=== PATIENT | female | born 1950 | race Caucasian/White ===

== ENCOUNTER → 2021-11-16 09:54 | Outpatient (CLI) | payer MEDICARE, SELFPAY ==
--- NOTE | ~2021-11-16 | MM_ITS ---
EXAMINATION: MM screening kisha BI w esperanza HISTORY: Screening mammogram TECHNIQUE: Craniocaudal and mediolateral oblique 3-D tomosynthesis images were obtained and synthetic 2-D images were generated. CAD analysis was submitted and interpreted. COMPARISON: 11/16/2018, 11/14/2017, 11/08/2016 bilateral screening mammogram examinations BREAST PARENCHYMAL COMPOSITION: There are scattered areas of fibroglandular density. FINDINGS: Biopsy marker on the right; history of prior benign right breast biopsy. Questionable new 5 mm mass at central left breast 6.4 cm deep to the nipple on MLO view. Diagnostic l eft mammogram is recommended, with ultrasound if required. There is otherwise no evidence of suspicious mass, calcification, or architectural distortion to sugg est malignancy in either breast. There has been no other suspicious interval change. IMPRESSION: 1. Questionable new 5 mm mass in central left breast on MLO view 2. Diagnostic left mammogram is recommended, with ultrasound if required BI-RADS Category 0: Incomplete: Needs additional imaging evaluation. Reviewed, dictated and finalized at location A.
--- NOTE | ~2021-11-16 | DEXA_ITS ---
Bone Density Report Name: IZZY MOREIRA Age: 71 Sex: Female Ethnicity: White Date of : 1950 Indication: postmenopausal; screening for osteoporosis; Referring Provider: RACHEL, LOUISA Study: Bone densitometry was performed. Exam Date: November 16, 2021 Accession number: [id number] Bone Density: Region BMD T-score Z-score Classification AP Spine (L1-L4) 1.043 0.0 2.0 Normal Femoral Neck (Left) 0.698 -1.4 0.4 Osteopenia Total Hip (Left) 0.896 -0.4 1.1 Normal Femoral Neck (Right) 0.663 -1.7 0.1 Osteopenia Total Hip (Right) 0.904 -0.3 1.1 Normal Total Hip Mean 0.900 -0.4 1.1 Normal World Health Organization criteria for BMD impression classify patients as: Normal (T-score at or above -1.0), Osteopenia (T-score between -1.0 and -2.5), or Osteoporosis (T-score at or below -2.5). 10-year Fracture Risk(1): Major Osteoporotic Fracture 9.3% Hip Fracture 1.3% Reported Risk Factors: [place] (), Neck BMD=0.663, BMI=35.7 (1) FRAX(R) Version 3.08. Fracture probability calculated for an untreated patient. Fracture probability may be lower if the patient has received treatment. Previous Exams: Region Exam Age BMD T-score BMD Change BMD Change Date g/cm2 vs Baseline vs Previous AP Spine(L1-L4) 11/16/2021 71 1.043 0.0 -0.081 -0.070* 11/16/2018 68 1.114 0.6 -0.010 -0.062 11/03/2015 65 1.176 1.2 0.052* 0.073* 05/28/2013 62 1.103 0.5 -0.021 -0.021 04/27/2007 56 1.124 0.7 Total Hip(Left) 11/16/2021 71 0.896 -0.4 -0.023 -0.036* 11/16/2018 68 0.932 -0.1 0.013 -0.019 11/03/2015 65 0.951 0.1 0.032* 0.026 05/28/2013 62 0.924 -0.1 0.005 0.005 04/27/2007 56 0.919 -0.2 Total Hip(Right) 11/16/2021 71 0.904 -0.3 0.005 -0.006 11/16/2018 68 0.910 -0.3 0.011 -0.049 11/03/2015 65 0.958 0.1 0.060* 0.021 05/28/2013 62 0.937 0.0 0.039* 0.039* 04/27/2007 56 0.898 -0.4 *Denotes significance at 95% confidence level, LSC for AP Spine = 0.022 g/cm2, LSC for Total Hip = 0.027 g/cm2 Clinical Information Provided by Patient: Has used the following medications: Vitamin D Patient maximum height was 66 Menopause Age: 54 No regular weight bearing exercise Does not regularly consume dairy products Drinks caffeinated ender
== END ==
PROVIDERS: Visit Provider Nurse Practitioner
DX: Z12.31 Encounter for screening mammogram for malignant neoplasm of breast (principal); Z78.0 Asymptomatic menopausal state; R92.8 Other abnormal and inconclusive findings on diagnostic imaging of breast; M85.852 Other specified disorders of bone density and structure, left thigh; M85.851 Other specified disorders of bone density and structure, right thigh
CPT/HCPCS: 77063; 77067; 77080

== ENCOUNTER → 2021-11-29 08:46 | Outpatient (CLI) | payer MEDICARE, SELFPAY ==
--- NOTE | ~2021-11-29 | MMUS_ITS ---
EXAMINATION: MM diagnostic kisha LT w esperanza, US breast LT complete HISTORY: Follow-up left breast asymmetry TECHNIQUE: Additional 3-D tomosynthesis images of the left breast were performed and synthetic 2-D im ages were generated. CAD analysis was submitted and interpreted. High resolution complete left breast ultrasound was performed. COMPARISON: Comparison to multiple prior studies sequentially, with oldest reviewed study dated 11/02. BREAST PARENCHYMAL COMPOSITION: Breast composed of scattered areas of fibroglandular density FINDINGS: MAMMOGRAPHIC FINDINGS: There are no suspicious masses, calcifications or architectural distortion in the left breast to sugg est malignancy. ULTRASOUND: Complete left breast ultrasound including all 4 quadrants in the subareolar location: At 2:00, 9 cm f rom the nipple there is a 1.1 cm lymph node. No suspicious masses to suggest malignancy. IMPRESSION: 1. No evidence for malignancy in the left breast. 2. Routine yearly screening mammogram and regular clinical breast examination are recommended. BI-RADS Category 2: Benign finding(s). Reviewed, dictated and finalized at location A. IMPRESSION: 1. No evidence for malignancy in the left breast. 2. Routine yearly screening mammogram and regular clinical breast examination a re recommended. BI-RADS Category 2: Benign finding(s).
== END ==
PROVIDERS: PCP Obstetrics & Gynecology Gynecology; Visit Provider Obstetrics & Gynecology Gynecology
DX: R92.8 Other abnormal and inconclusive findings on diagnostic imaging of breast (principal)
CPT/HCPCS: 76641; 77061; 77065; G0279

== ENCOUNTER → 2022-11-18 07:24 | Outpatient (CLI) | payer MEDICARE, SELFPAY ==
--- NOTE | ~2022-11-18 | MM_ITS ---
EXAMINATION: MM screening kisha BI w esperanza HISTORY: Screening mammogram TECHNIQUE: Craniocaudal and mediolateral oblique 3-D tomosynthesis images were obtained and synthetic 2-D images were generated. CAD analysis was submitted and interpreted. COMPARISON: November 29, 2021 diagnostic left mammogram and complete left breast ultrasound examination November 16, 2021, November 16, 2018 bilateral screening mammogram examinations BREAST PARENCHYMAL COMPOSITION: There are scattered areas of fibroglandular density. FINDINGS: Scattered occasional benign calcifications. There is no evidence of suspicious mass, calcif ication, or architectural distortion to suggest malignancy in either breast. There has been no suspic ious interval change. IMPRESSION: 1. No mammographic evidence of malignancy. 2. Recommend routine screening mammography in one year. BI-RADS Category 2: Benign finding(s). Reviewed, dictated and finalized at location A.
== END ==
PROVIDERS: Visit Provider Nurse Practitioner
DX: Z12.31 Encounter for screening mammogram for malignant neoplasm of breast (principal)
CPT/HCPCS: 77063; 77067

== ENCOUNTER 2023-11-24 07:24 | Outpatient (CLI) | payer MEDICARE, SELFPAY ==
--- NOTE | ~2023-11-24 | MM_ITS ---
EXAMINATION: MM screening kisha BI w esperanza HISTORY: Screening TECHNIQUE: Craniocaudal and mediolateral oblique 3-D tomosynthesis images were obtained and synthetic 2-D images were generated. CAD analysis was submitted and interpreted. COMPARISON: Comparison to multiple prior studies sequentially, with oldest reviewed study dated 11/16. BREAST PARENCHYMAL COMPOSITION: Not dense: There are scattered areas of fibroglandular density. FINDINGS: The right breast is stable without evidence for malignancy. There are developing nodular as ymmetries in the upper outer quadrant of the left breast. IMPRESSION: 1. Developing nodular asymmetries upper-outer quadrant of the left breast. 2. Additional mammographic views and possible breast ultrasound are recommended. BI-RADS Category 0: Incomplete: Needs additional imaging evaluation. Reviewed, dictated and finalized at location B. IMPRESSION: 1. Developing nodular asymmetries upper-outer quadrant of the left breast. 2. Additional mammographic views and possible breast ultrasound are recommended . BI-RADS Category 0: Incomplete: Needs additional imaging evaluation.
== END 2023-11-24 07:25 ==
LOC: MICIMG 07:25
PROVIDERS: PCP Nurse Practitioner; Visit Provider Nurse Practitioner
DX: Z12.31 Encounter for screening mammogram for malignant neoplasm of breast (principal); R92.8 Other abnormal and inconclusive findings on diagnostic imaging of breast
CPT/HCPCS: 77063; 77067

== ENCOUNTER 2023-12-25 07:53 | Outpatient (CLI) | payer MEDICARE, SELFPAY ==
--- NOTE | ~2023-12-25 | MMUS_ITS ---
EXAMINATION: MM diagnostic kisha LT w esperanza, US breast LT limited HISTORY: Follow-up left breast asymmetries. TECHNIQUE: Additional 3-D tomosynthesis images of the left breast were performed and synthetic 2-D im ages were generated. CAD analysis was submitted and interpreted. High resolution Limited left breast ultrasound was performed. COMPARISON: Comparison to multiple prior studies sequentially, with oldest reviewed study dated 11/14. BREAST PARENCHYMAL COMPOSITION: Not dense: There are scattered areas of fibroglandular density. FINDINGS: MAMMOGRAPHIC FINDINGS: There are persistent nodular asymmetries in the upper outer quadrant of the left breast. No suspiciou s calcifications are identified. ULTRASOUND: Limited left breast ultrasound: At 1:00, 5 cm from the nipple there is an irregular shaped hypoechoic 6 mm mass without internal vascularity. There is mixed posterior attenuation. Margins are somewhat i rregular. Parallel orientation. At 3:00, 5 cm from the nipple there is a 6 mm oval hypoechoic mass wi th what appears to be an echogenic hilum, most likely benign intramammary lymph node. IMPRESSION: 1. Suspicious irregular shaped mass at 1:00, 5 cm from the left nipple measuring 6 mm. 2. Ultrasound-guided left breast biopsy recommended. BI-RADS category 4, suspicious findings. Reviewed, dictated and finalized at location A. IMPRESSION: 1. Suspicious irregular shaped mass at 1:00, 5 cm from the left nipple measurin g 6 mm. 2. Ultrasound-guided left breast biopsy recommended. BI-RADS category 4, suspicious findings.
== END 2023-12-25 07:54 ==
PROVIDERS: Visit Provider Nurse Practitioner
DX: R92.8 Other abnormal and inconclusive findings on diagnostic imaging of breast (principal); N63.21 Unspecified lump in the left breast, upper outer quadrant
CPT/HCPCS: 76642; 77061; 77065; G0279

== ENCOUNTER 2024-11-26 10:10 | Outpatient (CLI) | payer MEDICARE, SELFPAY ==
--- NOTE | ~2024-11-26 | DEXA_ITS ---
Bone Density Report Name: IZZY MOREIRA Age: 74 Sex: Female Ethnicity: White Date of : 1950 Indication: postmenopausal; screening for osteoporosis; height loss; Referring Provider: JORGE HERNANDEZ Study: Bone densitometry was performed. Exam Date: November 26, 2024 Accession number: [id number] Bone Density: Region BMD T-score Z-score Classification AP Spine(L1-L4) 1.080 0.3 2.5 Normal Femoral Neck (Left) 0.694 -1.4 0.5 Osteopenia Total Hip (Left) 0.795 -1.2 0.4 Osteopenia Femoral Neck (Right) 0.665 -1.7 0.3 Osteopenia Total Hip (Right) 0.898 -0.4 1.3 Normal Total Hip Mean 0.846 -0.8 0.9 Normal World Health Organization criteria for BMD impression classify patients as: Normal (T-score at or above -1.0), Osteopenia (T-score between -1.0 and -2.5), or Osteoporosis (T-score at or below -2.5). 10-year Fracture Risk(1): Major Osteoporotic Fracture 10% Hip Fracture 1.7% Reported Risk Factors: [place] (), Neck BMD=0.665, BMI=34.6 (1) FRAX(R) Version 3.08. Fracture probability calculated for an untreated patient. Fracture probability may be lower if the patient has received treatment. Clinical Information Provided by Patient: Has used the following medications: Vitamin D, Calcium Patient maximum height was 66 Menopause Age: 52 No regular weight bearing exercise Drinks caffeinated beverages Onset of menses at age 15 Number of children 1 Impression: The patient has low bone mass, based on the Right Femoral Neck T-score. The patient has an estimated ten-year risk of hip fracture of 1.7% and an estimated ten-year risk of major fracture of 10%, based on the WHO FRAX algorithm. Discussion: BONE DENSITY IS LOW AT ONE OR MORE SKELETAL SITES. This patient's lowest T-score is low at one or more skeletal sites. It meets the World Health Organization's (WHO) criteria for ?low bone mass? (T-score between -1.0 and -2.5). The patient's 10-year risk of fracture as calculated by FRAX is less than the threshold where pharmacological therapy is recommended by the National Osteoporosis Foundation (NOF). However, all treatment decisions require clinical judgment and consideration of individual patient factors, including patient preferences, comorbidities, previous drug use, risk factors not captured in the FRAX model (e.g., frailty, falls, vitamin D deficiency, increased bone turnover, interval significant decline in bone density) and possible under or overestimation of fracture risk by FRAX. The patient should follow a healthful lifestyle (good nutrition with adequate calcium and vitamin D, and appropriate weight-bearing exercise). Follow-Up: Consider repeating this study in 2 to 3 years to reassess this patient's status, or sooner if there is some new clinical indication. Reported by: ELKE on 11/26/2024 11:10:00 AM. Reviewed, dictated and finalized at location [facility]et
--- OUTSIDE RECORDS SUMMARY | 2024-11-26 11:32 | XMS_ITS | Clinical Summary ---
Author Organization [facility] Address [address] [place] [address] Care Team Providers Care Roofer Gypsum Name Role Phone Manda Sargent [facility] Primary Care Provider + Allergies No known active allergies Medications vitamin D2, ergocalciferol, [address] UNITS capsuleIndications :3 times per month Take 1 capsule (1.25 mg total) by mouth. Indications: 3 times per month 5 Active clotrimazole-betam ethasone cream 9 Active aspirin EC (ASPIRIN LOW DOSE) 81 MG tabletIndications: Hypertension, unspecified type Take 1 tablet (81 mg total) by mouth daily. 90 tablet 1 Active ONE TOUCH ULTRA 2 w/Device KitIndications:Typ e 2 diabetes mellitus without complication, without long-term current use of insulin ([facility]) USE TO TEST BLOOD GLUCOSE 1 kit 1 Active CALCIUM-VITAMIN D OR Active Doxylamine Succinate, Sleep, (SLEEP AID OR) Activ e levothyroxine (SYNTHROID) 25 MCG tabletIndications: Elevated TSH Take 1 tablet (25 mcg total) by mouth every morning. 90 tablet 3 4 Active lisinopril (PRINIVIL) 2.5 MG tabletIndications: Essential hypertension Take 1 tablet (2.5 mg total) by mouth daily. 90 tablet 3 4 Active metFORMIN (GLUCOPHAGE) 500 MG tabletIndications: Type 2 diabetes mellitus without complication, without long-term current use of insulin ([facility]) Take 1 tablet (500 mg total) by mouth 2 (two) times daily. 180 tablet 3 4 Active simvastatin (ZOCOR) 10 MG tabletIndications: Hyperlipidemia, unspecified hyperlipidemia type Take 1 tablet (10 mg total) by mouth nightly at bedtime. 90 tablet 3 4 Active Glucose Blood (ONETOUCH ULTRA) test stripIndications:U ncontrolled type 2 diabetes mellitus with hyperglycemia ([facility]/HCC HHS/HCC) 1 strip by Other route 2 (two) times a day. Use as instructed 200 strip 3 4 Active Lancets (ONETOUCH DELICA PLUS [id number]) MiscIndications:Un controlled type 2 diabetes mellitus with hyperglycemia (CMS/HCC HHS/HCC) 1 each by Other route 2 (two) times a day. 200 each 3 5 Active Lancet Devices (ONE TOUCH DELICA LANCING DEV) MiscIndications:Ty pe 2 diabetes mellitus with diabetic chronic kidney disease ([facility]/HCC HHS/HCC) Patient is needing a new lancing device 1 each 5 Active glimepiride (AMARYL) 4 MG tabletIndications: Type 2 diabetes mellitus with hyperglycemia, without long-term current use of insulin ([facility]/HCC HHS/HCC) Take 1 tablet (4 mg total) by mouth every morning before breakfast. Increase dose on 10/02/24. Was taking 2mg daily. 5 Active Active Problems Problem Noted Date Diagnosed Date Type 2 diabetes mellitus wit h diabetic chronic kidney disease 08/22/2023 BCC (basal cell carcinoma of skin) 05/09/2022 Type 2 or unspecified type d iabetes mellitus ([facility] HHS/HCC) 12/23/2014 Encounters Date Type Department Care Team Description 09/30/[address] [phone] Manda Sargent FNP-BC FYI 09/20/[address] [phone] Manda Sargent FNP-BC Results 09/18/2024 Scan HEALTH INFO SRVCS Scanned, [facility] (SCAN) from Last 3 Months Immunizations Immunization Administration Dates Next Due Fluzone 6 Months+ Quad (0.5 mL Prefilled Syringe) 05/04/2020(Deferred: Patient Refused) Fluzone High Dose (IIV, triv alent, 0.5mL) 06/19/2024 Fluzone High Dose - >Age 65 (Prefilled Syringe) 05/26/2022,06/25/2021 Influenza (Generic) 06/06/2023 PFIZER COVID-19 (NOVOA CAP), MRNA, LNP-S, PF, 30 MCG/0.3 ML MARKO-SUCROSE, IM 12/17/2021 PFIZER COVID-19 (ORIGINAL FORMULATION, PURPLE CAP) mRNA, LNP-S, PF, 30 MCG/0.3 ML DOSE 05/13/2021,10/21/2020,09/30/2020 PFIZER COVID-19 BIVALENT (12 +) mRNA, LNP-S, PF, 30 MCG/0.3 ML DOSE 05/26/2022 Pneumococcal (Pneumovax 23) 11/01/2022(D eferred: Patient/family declined) Shingrix 04/22/2024,,11/01/2022(Deferr ed: Patient/family declined) Family History Medical History Relation Comments Diabetes Brother 1 Heart Disease Brother 1 Diabetes Brother 2 Heart Disease Brother 2 Diabetes Brother 3 Cancer Father lung, brain Diabetes Mother Diabetes Sister 1 Heart Disease Sister 1 Diabetes Sister 2 Heart Disease Sister 2 Diabetes Sister 3 Relation Status Comments Brother 1 Brother 2 Brother 3 Alive Father Mother Sister 1 Sister 2 Sister 3 Alive Social History Tobacco Use Types Packs/Day Years Used Date Smoking Tobacco: Never Passive Smoke Exposure: Past Smokeless Tobacco: Never Tobacco Cessation:Counseling Given: No Alcohol Use Standard Drinks/Week Comments Yes 0 (1 standard drink = 0.6 oz pur e alcohol) PHQ-2 Answer Date Recorded Patient Health Questionnaire-2 Score 0 08/19/2024 Comments No Sex and Gender Information Value Date Recorded Sex Assigned at Not on file Legal Sex Female 7:36 PM CDT Gender Identity Not on file Sexual Orientation Not on file Last Filed Vital Signs Vital Sign Reading Time Taken Comments Blood Pressure 152/89 02/16/2024 9:15 AM CDT Pulse 93 02/16/2024 8:45 AM CDT Temperature 35.9 C (96.7 F) 02/16/2024 8:45 AM CDT Respiratory Rate 18 02/16/2024 8:45 AM CDT Oxygen Saturation 98% 02/16/2024 8:45 AM CDT Inhaled Oxygen Concentration - - Weight 95.3 kg (210 lb) 02/16/2024 8:45 AM CDT Height 167.6 cm (5' 6 ) 02/16/2024 8:45 AM CDT Body Mass Index 33.89 02/16/2024 8:45 AM CDT Plan of Treatment Health Maintenance Due Date Last Done Comments DTaP, Tdap and Td Vaccines (1 - Tdap) 1971 Pneumococcal Vaccine: 50+ Years (1 of 2 - PCV) 1971 RSV Immunization or 60+ Years (1 - Risk 60-74 years 1-dose series) 2012 Annual Medicare Wellness Visit 2017 COVID-19 Vaccine (8 - Pfizer risk season) 2024 06/19/2024, 06/06/2023, 05/26/2022, Additional history exists Kidney Health Evaluation 03/01/2025 03/01/2024 Lipid Panel 03/01/2025 03/01/2024, 02/04, 02/11/2022, Additional history exists Hemoglobin A1C 03/18/2025 09/18/2024, 02/05, 08/29/2023, Additional history exists Diabetes: Retinopathy Eye Exam 11/07/2025 11/08/2023, 05/05/2021 Colorectal Cancer Screening Colonoscopy (10 Years) 12/21/2025 12/22/2015 Mammogram Screening 01/14/2026 01/15/2024, 11/18/2022, 11/29/2021, Additional history exists Dexa Scan (General) Completed 11/16/2021 Hepatitis C Completed 03/01/2024 Zoster Vaccines Completed 04/22/2024, 02/16/2024 PHQ-2 (Physician Innis) Completed 08/19/2024 Meningococcal B Vaccine Aged Out No l onger eligible based on patient's age to complete this topic Meningococcal Vaccine Aged Out No gregorio margarita eligible based on patient's age to complete this topic RSV Immunizations Under 20 Months Aged Out No longer eligible based on patient's age to complete this topic Procedures Procedure Name Priority Date/Time Associated Diagnosis Comments OUTSIDE LAB (SCAN ORDER) Routine 09/18/2024 HEPATITIS C ANTIBODY W/RFX TO HCV RNA Routine 03/01/2024 7:05 AM CDT LIPID PANEL Routine 03/01/2024 7:05 AM CDT Hyperlipidemia, unspecified hyperlipidemia type DIABETIC RETINOPATHY EXAM (NEGATIVE)(SCAN ORDER) Routine 11/08/2023 12:00 AM CDT MAMMOGRAM GENERIC (SCAN ORDER) 11/18/2022 BONE DENSITY GENERIC (SCAN ORDER) 11/16/2021 COLONOSCOPY GENERIC (SCAN ORDER) Routine 12/22/2015 from Last 3 Months or Most Recently Relevant to Health Maintenance Results * OUTSIDE LAB (09/18/2024) HGB A1C 7.2 % [facility] 09/18/2024 us [facility] Scanned SCANNING Final Resu lt [facility] * HEPATITIS C ANTIBODY W/RFX TO HCV RNA (03/01/2024 7:05 AM CDT) HEPATITIS C AB NON-REACT QIANA NON-REACT QIANA Valutao [facility] Comment: HCV antibody was non-reactive. There is no laboratory evidence of HCV infection. In most cases, no further action is required. However, if recent HCV exposure is suspected, a test for HCV RNA (test code 69729) is suggested. For additional information please refer to http://education.[employer]/faq/MRM55h0 (This link is being provided for informational/ educational purposes only.) 03/01/2024 7:05 AM CDT 03/01/2024 7:07 AM CDT Narrative ABBY MORALES ORDERS - 03/02/2024 2:32 PM CDT FASTING:YES FASTING: YES Resulting Agency Comment Performing Organization Information: Site ID: [id number] Name: Abby Acevedo Address: [address] [address] Director: Paola Ramirez MD us Manda Sargent [facility] Final Re sult ABBY ALVARADO [facility] [address] [facility] [place] [address], * LIPID PANEL (03/01/2024 7:05 AM CDT) Pathologist [facility] CHOLESTEROL 171 <200 mg/dL [facility] HDL 72 > OR = 50 mg/dL [facility] TRIGLYCERIDES 122 <150 mg/dL [facility] LDL (CALCULATED) 79 mg/dL (calc) [facility] Comment: Reference range: <100 Desirable range <100 mg/dL for primary prevention; <70 mg/dL for patients with CHD or diabetic patients with > or = 2 CHD risk factors. LDL-C is now calculated using the Mauricio-Edgar calculation, which is a validated novel method providing better accuracy than the Friedewald equation in the estimation of LDL-C. Mauricio SS et al. PREMA. 2013;310(19): 7948-6810 (http://education.[employer].com/faq/NXR489) CHOL/HDL RATIO 2.4 <5.0 (calc) [facility] NON HDL CHOLESTEROL 99 <130 mg/dL (calc) [facility] Comment: For patients with diabetes plus 1 major ASCVD risk factor, treating to a non-HDL-C goal of <100 mg/dL (LDL-C of <70 mg/dL) is considered a therapeutic option. 03/01/2024 7:05 AM CDT 03/01/2024 7:07 AM CDT Narrative ABBY ALVARADO - 03/02/2024 2:32 PM CDT FASTING:YES FASTING: YES Resulting Agency Comment Performing Organization Information: Site ID: [id number] Name: Abby Acevedo Address: [address] [id number] Director: Paola Ramirez MD us Manda Sargent [employer]/DESIGNER- LABORATORY Final Re sult Performing Organization Address [facility] Co de Phone Number [facility] [address] [place] [address], [place] * DIABETIC RETINOPATHY EXAM (NEGATIVE) (11/08/2023 12:00 AM CDT) 11/08/2023 [facility] Scanned SCANNING Final Resu lt Performing Organization Address [facility] Co de Phone Number [facility] * MAMMOGRAM GENERIC (11/18/2022) Anatomical Region Laterality Modality Other 11/18/2022 [facility] Scanned SCANNING Final Resu lt * BONE DENSITY GENERIC (11/16/2021) Anatomical Region Laterality Modality Other 11/16/2021 Narrative 11/16/2021 Ordered by an unspecified provider. us Documents Scanned SCANNING Final Result * COLONOSCOPY (12/22/2015) us Documents Scanned SCANNING Final Result Performing Organization Address [facility] Co de Phone Number [facility]GEN from Last 3 Months or Most Recently Relevant to Health Maintenance Insurance MED [facility] MEDICARE Care Teams Roofer Gypsum Relationship Specialty Start Date End Date Manda Sargent, TOOL AND DIE MAKER/DESIGNER- [id number], [address] [place] [address] PCP - General NURSE PRACTITIONER 05/04/20
--- OUTSIDE RECORDS SUMMARY | 2024-11-26 11:32 | XMS_ITS | Encounter Summary ---
Author Organization [facility] Address [address] [place] [address] Care Team Providers Care Home Economist Name Role Phone Rama Fam MD Primary Care Provider + Reason for Visit * Diagnostic Imaging (Routine) - Pending Review Specialty Diagnoses / Procedures Referred By Contac t Referred To Contact Procedures Breast Imaging Screening Outside Reference Transcribed Order, Provider Referral ID Status Reason Start Date Expiration Date V isits Requested Visits Authorized [id number] Pending Review 01/04/2024 02/02/2025 1 1 Encounter Details Date Type Department Care Team (Late st Contact Info) Description 11/16/2018 Hospital Encounter [facility] [address] [place] [id number] Social History Tobacco Use Types Packs/Day Years Used Date Smoking Tobacco: Never Assessed Alcohol Use Standard Drinks/Week Comments Yes 0 (1 standard drink = 0.6 oz pur e alcohol) Comments Unknown Sex and Gender Information Value Date Recorded Sex Assigned at Not on file Legal Sex Female 7:01 PM COURIER Gender Identity Not on file Sexual Orientation Not on file documented as of this encounter Plan of Treatment Not on file documented as of this encounter Procedures Procedure Name Priority Date/Time Associated Diagnosis Comments BREAST IMAGING MG SCREENING OUTSIDE REFERENCE Routine 11/16/2018 12:00 AM CDT documented in this encounter Results * Breast Imaging Screening Outside Reference (11/16/2018 12:00 AM CDT) Impressions [facility] - 01/04/2024 8:39 AM CDT These images are for Reference purposes only and have not been reviewed by [facility] Radiology. There will be no report generated by a [facility] Radiologist. Narrative RAD_MAMMO_[facility] - 01/04/2024 8:39 AM CDT EXAMINATION: Images For Reference Purposes Only us Provider Transcribed Order IMG MAMMO PROCEDURES Final Result [facility] documented in this encounter Visit Diagnoses Not on filedocumented in this encounter Care Teams Home Economist Relationship Specialty Start Date End Date Rama Fam MD [address] [address] PCP - General 06/20/13 01/31/24 documented as of this encounter
--- OUTSIDE RECORDS SUMMARY | 2024-11-26 11:32 | XMS_ITS | Clinical Summary ---
Author Organization [facility] Address [address] [place] [phone] Care Team Providers Care Money Market Clerk Name Role Phone Manda Sargent NP Primary Care Provide r Rama Fam MD Unavailable [phone] Allergies No known active allergies Medications aspirin 81 mg enteric coated tablet Take 1 tablet (81 mg total) by mouth daily 1 Active ergocalciferol (VITAMIN D) 50,000 unit capsule Take 1.25 mg by mouth 5 Active glimepiride (AMARYL) 2 mg tablet TAKE 1 TABLET BY MOUTH EVERY MORNING BEFORE BREAKFAST (INCREASE IN DOSE) 3 Active lisinopriL (PRINIVIL,ZESTR IL) 2.5 mg tablet Take 1 tablet (2.5 mg total) by mouth daily 4 Active metFORMIN (GLUCOPHAGE) 500 mg tablet Take 1 tablet (500 mg total) by mouth 2 (two) times a day 3 Active levothyroxine (SYNTHROID) 25 mcg tablet Take 1 tablet (25 mcg total) by mouth daily Active simvastatin (ZOCOR) 10 mg tablet TAKE 1 TABLET BY MOUTH AT NIGHT AT BEDTIME 4 Active doxylamine (UNISOM) 25 mg tablet Take by mouth Active OneTouch Ultra Test strip 5 Active clotrimazole-be tamethasone (LOTRISONE) cream 9 Active OneTouch Delica Plus Lancet 33 gauge misc 5 Active OneTouch Delica Plus Lanc Dev kit 5 Active OneTouch Ultra Test strip 1 each by other route 2 (two) times a day 4 Active calcium carb/vit D3/minerals (CALCIUM-VITAMI N D ORAL) Take by mouth Active Active Problems No known active problems Encounters Date Type Department Care Team Description 10/28/2024 8:54 AM CDT - 10/28/2024 11:59 PM CDT Hospital Encounter [facility] - Breast Imaging [address] [place] [phone] Abnormal ultrasound of breast; Encounter for screening mammogram for malignant neoplasm of breast Discharge Disposition: Discharge to home or self care 10/28/2024 8:54 AM CDT - 10/28/2024 11:59 PM CDT Hospital Encounter [facility] - Breast Imaging [address] [place] [phone] Mass of left breast, unspecified quadrant Discharge Disposition: Discharge to home or self care 10/28/2024 8:45 AM CDT Office Visit [facility] Surgery [address] [place] [phone] Shea Moreno NP Abnormal finding on breast imaging (Primary Dx); Abnormal mammogram 10/24/2024 Orders Only [facility] - Breast Imaging [address] [place] [phone] [place] Irby CMA Abnormal ultrasound of breast (Primary Dx); Encounter for screening mammogram for malignant neoplasm of breast from Last 3 Months Immunizations Immunization Administration Dates Next Due Influenza, Quadrivalent, Hig h Dose, Preservative Free, Intrr 05/26/2022,06/25/2021 Influenza, Quadrivalent, Rec ombinant, Egg Free, Preservative Free, Intramuscular 06/06/2023 Influenza, Trivalent, High D ose, Split, Preservative Free, Intramuscular 06/19/2024 ZOSTER Recombinant 04/22/2024,02/16/2024 Surgical History Surgery Date Site/Laterality Comments BREAST BIOPSY 02/12/2024 Left Medical History Medical History Date Comments Diabetes mellitus (HCC) Diabetes Hypertension Type 2 diabetes mellitus (HCC) Thyroid disease Family History Medical History Relation Name Comments Brain cancer Father Lung cancer Father Relation Name Status Comments Father Social History Tobacco Use Types Packs/Day Years Used Date Smoking Tobacco: Never Assessed Alcohol Use Standard Drinks/Week Comments Yes 0 (1 standard drink = 0.6 oz pur e alcohol) Comments Unknown Sex and Gender Information Value Date Recorded Sex Assigned at Not on file Legal 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 Gender Identity Not on file Sexual Orientation Not on file Obstetrics History Last Filed Vital Signs Vital Sign Reading Time Taken Comments Blood Pressure 131/81 06/20/2013 1:37 PM SCUBA DIVING INSTRUCTOR Pulse 86 06/20/2013 1:37 PM SCUBA DIVING INSTRUCTOR Temperature - - Respiratory Rate - - Oxygen Saturation - - Inhaled Oxygen Concentration - - Weight 98.4 kg (217 lb) 10/28/2024 8:42 AM CDT Height 167.6 cm (5' 6 ) 10/28/2024 8:42 AM CDT Body Mass Index 35.02 10/28/2024 8:42 AM CDT Plan of Treatment Health Maintenance Due Date Last Done Comments Colon Cancer Screening-Colonoscopy 1950 Depression Screening 1950 Fall Risk Assessment 1950 Hepatitis C Screening 1950 Osteoporosis Screening-Bone Density Scan 1950 DTaP/Tdap/Td Vaccine (1 - Tdap) 1963 Hepatitis B Screening 1970 Pneumococcal vaccine 65+ (1 of 1 - PCV) 2002 Well Visit 65+ 2017 Covid-19 Vaccine (2023-2 5 season) 2024 06/06/2023, 05/26/2022, 12/17/2021, Additional history exists Breast Cancer Screening-Mammogram 10/28/2025 025 Zoster Vaccine Completed 04/22/2024, 02/16/2024 Influenza Vaccine Completed 06/19/2024, , 05/26/2022, Additional history exists Medical Devices Implanted Type Area Joiner Apprentice Device Identifier Shelf Expiration Date Model / Serial / Lot Bard Peripheral Vascular Ultraclip Bard 17ga 10cm 2 Trigger Permanent Ultrasound [id number] - [id number] Implanted:Qty: 1 on 02/12/2024 by Manjinder Santos MD at [facility] Left: Breast Bard Peripheral Vascular [id number] / / Procedures Procedure Name Priority Date/Time Associated Diagnosis Comments US BREAST LEFT LIMITED Schedule Routine, Read Routine (OP Routine) 10/28/2024 10:04 AM CDT Mass of left breast, unspecified quadrant DIAGNOSTIC MAMMOGRAM BILATERAL W MAUREEN Schedule Routine, Read Routine (OP Routine) 10/28/2024 9:28 AM CDT Abnormal ultrasound of breast Encounter for screening mammogram for malignant neoplasm of breast from Last 3 Months Results * US Breast Left Limited (10/28/2024 10:04 AM CDT) Anatomical Region Laterality Modality Breast Left Ultrasound 10/28/2024 10:2 6 AM CDT Impressions 10/28/2024 1:32 PM CDT Vague hypoechoic tissue in the left breast at the 1 o'clock position 5 cm from the nipple appears unchanged. Recommend follow-up ultrasound at the time of annual mammogram in one year. OVERALL FINAL ASSESSMENT: BI-RADS Category 3: Probably Benign. RECOMMENDATION: Recommend follow-up diagnostic breast imaging in one year with left breast ultrasound. Dr. Lane discussed the above findings and recommendations with the patient, who expressed her understanding of the management plan. Dictated by: Africa Lane MD The radiology attending physician has personally reviewed this study, and had reviewed and/or edited this written report and agrees with it. Electronically signed by: Manjinder Santos MD Narrative 10/28/2024 1:32 PM CDT EXAMINATION: BILATERAL DIGITAL DIAGNOSTIC MAMMOGRAM INCLUDING CAD AND BILATERAL DIGITAL BREAST TOMOSYNTHESIS; LEFT BREAST SONOGRAM HISTORY: 74-year-old woman with left breast hypoechoic area at 1:00 5 cm from the nipple previously recommended for biopsy, but with appearance of dense breast tissue on real-time ultrasound scanning on 01/15/2024 for which follow-up ultrasound was recommended. COMPARISON: Multiple prior mammograms, most recently 02/12/2024, and multiple prior breast ultrasounds including 02/12/2024 and 01/15/2024. TECHNIQUE: Full field digital mammographic views of BOTH breasts were performed, including computer aided detection (CAD) and BILATERAL digital breast tomosynthesis (DBT). Directed ultrasound evaluation of the LEFT breast was performed. BREAST PARENCHYMAL COMPOSITION: There are scattered areas of fibroglandular density. MAMMOGRAM FINDINGS: There are no suspicious masses, areas of architectural distortion or malignant appearing calcifications identified in EITHER breast. SONOGRAM FINDINGS: In the left breast at the 1 o'clock position 5 cm from the nipple there is an unchanged vague hypoechoic area which appears to be dense breast tissue. Procedure Note Manjinder Santos MD - 10/28/2024 EXAMINATION: BILATERAL DIGITAL DIAGNOSTIC MAMMOGRAM INCLUDING CAD AND BILATERAL DIGITAL BREAST TOMOSYNTHESIS; LEFT BREAST SONOGRAM HISTORY: 74-year-old woman with left breast hypoechoic area at 1:00 5 cm from the nipple previously recommended for biopsy, but with appearance of dense breast tissue on real-time ultrasound scanning on 01/15/2024 for which follow-up ultrasound was recommended. COMPARISON: Multiple prior mammograms, most recently 02/12/2024, and multiple prior breast ultrasounds including 02/12/2024 and 01/15/2024. TECHNIQUE: Full field digital mammographic views of BOTH breasts were performed, including computer aided detection (CAD) and BILATERAL digital breast tomosynthesis (DBT). Directed ultrasound evaluation of the LEFT breast was performed. BREAST PARENCHYMAL COMPOSITION: There are scattered areas of fibroglandular density. MAMMOGRAM FINDINGS: There are no suspicious masses, areas of architectural distortion or malignant appearing calcifications identified in EITHER breast. SONOGRAM FINDINGS: In the left breast at the 1 o'clock position 5 cm from the nipple there is an unchanged vague hypoechoic area which appears to be dense breast tissue. IMPRESSION: Vague hypoechoic tissue in the left breast at the 1 o'clock position 5 cm from the nipple appears unchanged. Recommend follow-up ultrasound at the time of annual mammogram in one year. OVERALL FINAL ASSESSMENT: BI-RADS Category 3: Probably Benign. RECOMMENDATION: Recommend follow-up diagnostic breast imaging in one year with left breast ultrasound. Dr. aLne discussed the above findings and recommendations with the patient, who expressed her understanding of the management plan. Dictated by: Africa Lane MD The radiology attending physician has personally reviewed this study, and had reviewed and/or edited this written report and agrees with it. Electronically signed by: Manjinder Santos MD Shea Moreno GAME ADVISOR IMG MAMMO PROCEDURES Final Result * Diagnostic Mammogram Bilateral W Maureen (10/28/2024 9:28 AM CDT) Anatomical Region Laterality Modality Breast Bilateral Mammography 10/28/2024 10:2 6 AM CDT Impressions 10/28/2024 1:32 PM CDT Vague hypoechoic tissue in the left breast at the 1 o'clock position 5 cm from the nipple appears unchanged. Recommend follow-up ultrasound at the time of annual mammogram in one year. OVERALL FINAL ASSESSMENT: BI-RADS Category 3: Probably Benign. RECOMMENDATION: Recommend follow-up diagnostic breast imaging in one year with left breast ultrasound. Dr. Lane discussed the above findings and recommendations with the patient, who expressed her understanding of the management plan. Dictated by: Africa Lane MD The radiology attending physician has personally reviewed this study, and had reviewed and/or edited this written report and agrees with it. Electronically signed by: Manjinder Santos MD Narrative 10/28/2024 1:32 PM CDT EXAMINATION: BILATERAL DIGITAL DIAGNOSTIC MAMMOGRAM INCLUDING CAD AND BILATERAL DIGITAL BREAST TOMOSYNTHESIS; LEFT BREAST SONOGRAM HISTORY: 74-year-old woman with left breast hypoechoic area at 1:00 5 cm from the nipple previously recommended for biopsy, but with appearance of dense breast tissue on real-time ultrasound scanning on 01/15/2024 for which follow-up ultrasound was recommended. COMPARISON: Multiple prior mammograms, most recently 02/12/2024, and multiple prior breast ultrasounds including 02/12/2024 and 01/15/2024. TECHNIQUE: Full field digital mammographic views of BOTH breasts were performed, including computer aided detection (CAD) and BILATERAL digital breast tomosynthesis (DBT). Directed ultrasound evaluation of the LEFT breast was performed. BREAST PARENCHYMAL COMPOSITION: There are scattered areas of fibroglandular density. MAMMOGRAM FINDINGS: There are no suspicious masses, areas of architectural distortion or malignant appearing calcifications identified in EITHER breast. SONOGRAM FINDINGS: In the left breast at the 1 o'clock position 5 cm from the nipple there is an unchanged vague hypoechoic area which appears to be dense breast tissue. Procedure Note Manjinder Santos MD - 10/28/2024 EXAMINATION: BILATERAL DIGITAL DIAGNOSTIC MAMMOGRAM INCLUDING CAD AND BILATERAL DIGITAL BREAST TOMOSYNTHESIS; LEFT BREAST SONOGRAM HISTORY: 74-year-old woman with left breast hypoechoic area at 1:00 5 cm from the nipple previously recommended for biopsy, but with appearance of dense breast tissue on real-time ultrasound scanning on 01/15/2024 for which follow-up ultrasound was recommended. COMPARISON: Multiple prior mammograms, most recently 02/12/2024, and multiple prior breast ultrasounds including 02/12/2024 and 01/15/2024. TECHNIQUE: Full field digital mammographic views of BOTH breasts were performed, including computer aided detection (CAD) and BILATERAL digital breast tomosynthesis (DBT). Directed ultrasound evaluation of the LEFT breast was performed. BREAST PARENCHYMAL COMPOSITION: There are scattered areas of fibroglandular density. MAMMOGRAM FINDINGS: There are no suspicious masses, areas of architectural distortion or malignant appearing calcifications identified in EITHER breast. SONOGRAM FINDINGS: In the left breast at the 1 o'clock position 5 cm from the nipple there is an unchanged vague hypoechoic area which appears to be dense breast tissue. IMPRESSION: Vague hypoechoic tissue in the left breast at the 1 o'clock position 5 cm from the nipple appears unchanged. Recommend follow-up ultrasound at the time of annual mammogram in one year. OVERALL FINAL ASSESSMENT: BI-RADS Category 3: Probably Benign. RECOMMENDATION: Recommend follow-up diagnostic breast imaging in one year with left breast ultrasound. Dr. Lane discussed the above findings and recommendations with the patient, who expressed her understanding of the management plan. Dictated by: Africa Lane MD The radiology attending physician has personally reviewed this study, and had reviewed and/or edited this written report and agrees with it. Electronically signed by: Manjinder Santos MD Shea Moreno NP IMG MAMMO PROCEDURES Final Result from Last 3 Months Insurance [facility] MEDICARE ADVANTAGE [facility] MEDICARE ADVANTAGE Care Teams Money Market Clerk Relationship Specialty Start Date End Date Manda Sargent NP [address] [address] PCP - General Nurse Practitioner 02/01/24 Rama Fam MD [address] [facility] [address] [place] [address] Referring Physician Gynecology 02/27/24
--- OUTSIDE RECORDS SUMMARY | 2024-11-26 11:32 | XMS_ITS | Referral Summary ---
Author Organization [facility] Address [address] [place] [phone] Care Team Providers Care Programs Assistant Name Role Phone Manda Sargent NP Primary Care Provide r Rama Fam MD Unavailable [phone] Encounters Date Type Department Care Team Description 10/28/2024 8:54 AM CDT - 10/28/2024 11:59 PM CDT Hospital Encounter [facility] - Breast Imaging [address] [place] [phone] Abnormal ultrasound of breast; Encounter for screening mammogram for malignant neoplasm of breast Discharge Disposition: Discharge to home or self care 10/28/2024 8:54 AM CDT - 10/28/2024 11:59 PM CDT Hospital Encounter [facility] - Breast Imaging [address] [place] [phone] Mass of left breast, unspecified quadrant Discharge Disposition: Discharge to home or self care 10/28/2024 8:45 AM CDT Office Visit [facility] [address] [place] [phone] Shea Moreno NP Abnormal finding on breast imaging (Primary Dx); Abnormal mammogram 10/24/2024 Orders Only [facility] - Breast Imaging [address] [place] [phone] [place] Irby CMA Abnormal ultrasound of breast (Primary Dx); Encounter for screening mammogram for malignant neoplasm of breast from Last 3 Months Allergies No known active allergies Medications aspirin [...] Active Active Problems No known active problems Immunizations Immunization Administration Dates Next Due Influenza, Quadrivalent, Hig h Dose, Preservative Free, Intrr 05/26/2022,06/25/2021 Influenza, Quadrivalent, Rec ombinant, Egg Free, Preservative Free, Intramuscular 06/06/2023 Influenza, Trivalent, High D ose, Split, Preservative Free, Intramuscular 06/19/2024 ZOSTER Recombinant 04/22/2024,02/16/2024 Social History Tobacco Use Types Packs/Day Years Used Date Smoking Tobacco: Never Assessed Alcohol Use Standard Drinks/Week Comments Yes 0 (1 standard drink = 0.6 oz pur e alcohol) Comments Unknown Sex and Gender Information Value Date Recorded Sex Assigned at Not on file 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 Gender Identity Not on file Sexual Orientation Not on file Last Filed Vital Signs Vital Sign Reading Time Taken Comments Blood Pressure 131/81 06/20/2013 1:37 PM STORE GROCERY MERCHANDISER Pulse 86 06/20/2013 1:37 PM STORE GROCERY MERCHANDISER Temperature - - Respiratory Rate - - Oxygen Saturation - - Inhaled Oxygen Concentration - - Weight 98.4 kg (217 lb) 10/28/2024 8:42 AM CDT Height 167.6 cm (5' 6 ) 10/28/2024 8:42 AM CDT Body Mass Index 35.02 10/28/2024 8:42 AM CDT Plan of Treatment Not on file Medical Devices Implanted Type Area Driver Trainer Device Identifier Shelf Expiration Date Model / Serial / Lot Bard Peripheral Vascular Ultraclip Bard 17ga 10cm 2 Trigger Permanent Ultrasound [id number] - [id number] Implanted:Qty: 1 on 02/12/2024 by Manjinder Santos MD at [facility] Left: Breast Bard Peripheral Vascular [id number] / / Procedures Procedure Name Priority Date/Time [...] signed by: Manjinder Santos MD Shea Moreno REVIEW MANAGER IMG MAMMO PROCEDURES Final Result * Diagnostic [...] and agrees with it. Electronically signed by: MD Bethel Ramsey 10/28/2024 1:32 PM CDT EXAMINATION: BILATERAL DIGITAL [...] signed by: Manjinder Santos MD Shea Moreno REVIEW MANAGER IMG MAMMO PROCEDURES Final Result from Last 3 Months Insurance [employer] MEDICARE ADVANTAGE [facility] MEDICARE Address: [facility] [address] [address] [facility] MEDICARE ADVANTAGE [facility] MEDIC[facility] Address: [address] [address] [place] [address] Care Teams Programs Assistant Relationship Specialty Start Date End Date Manda Sargent NP [address] [facility] [address] [place] [address] PCP - General Nurse Practitioner 02/01/24 Rama Fam MD [address] [place] [phone] Referring Physician Gynecology 02/27/24
== END 2024-11-26 10:11 | disposition home or self-care (01) ==
PROVIDERS: Visit Provider Obstetrics & Gynecology Gynecology
DX: Z13.820 Encounter for screening for osteoporosis (principal); Z78.0 Asymptomatic menopausal state; M85.852 Other specified disorders of bone density and structure, left thigh; M85.851 Other specified disorders of bone density and structure, right thigh
CPT/HCPCS: 77080